=== PATIENT | female | born 2000 | race Caucasian/White ===

== ENCOUNTER 2025-06-21 16:40 | Emergency (ER) | payer OTHER ==
[~2025-06-21] VITALS: Ht 160 cm; Wt 95.0 kg
[~2025-06-21 16:40] MED LIST: ACET-2708 PO
[2025-06-21 16:46] VITALS: O2SAT 100
[2025-06-21 16:49] VITALS: BP 124/74; PULSE 86; RESP 15; TEMP 36.9; O2SAT 98
[2025-06-21 21:01] LABS: CLARITY URINE CLOUDY (CLEAR); COLOR URINE YELLOW (YELLOW); GLUCOSE URINE NEGATIVE (NEGATIVE); KETONES URINE NEGATIVE (NEGATIVE); LEUKOCYTE ESTERASE URINE 3+ (NEGATIVE); NITRITE URINE NEGATIVE (NEGATIVE); OCCULT BLOOD URINE 1+ (NEGATIVE); PH URINE 5.5 (4.5-8.0); PROTEIN URINE NEGATIVE (NEGATIVE); SPECIFIC GRAVITY URINE 1.005 (1.005-1.030); UROBILINOGEN URINE 0.2 E.U./dL (0.2-1.0)
[2025-06-21 21:14] LABS: SQUAMOUS EPITHELIAL CELL URINE 2+ /lpf (RARE/1+)
[2025-06-21 21:15] LABS: BACTERIA URINE 2+; WBC URINE 25-50 /hpf (0-2)
[2025-06-21] MEDS ORDERED: PYR200 MT (22:19)
[2025-06-21] MEDS ORDERED: ONDA-239 PO (22:19)
[2025-06-21] MEDS ORDERED: CEPH500C2 MT (22:19)
[2025-06-21] MEDS ORDERED: LIDOCAINE HCL 1% 20ML VIAL INFIL ONE (22:30)
[2025-06-21] MEDS ORDERED: DOXY100C5 MT (22:31)
[2025-06-21] MEDS: PHENAZOPYRIDINE HCL 100MG TABLET PO ONE (22:31)
[2025-06-21] MEDS: CEPHALEXIN 250MG CAPSULE PO ONE (22:31)
[2025-06-21] MEDS: CEFTRIAXONE SODIUM 500MG VIAL IM ONE (22:38)
[2025-06-24 04:12] LABS: CHLAMYDIA TRACHOMATIS NAA Negative (Negative); NEISSERIA GONORRHOEAE NAA Negative (Negative)
== END 2025-06-21 22:46 | disposition home or self-care (01) ==
LOC: ER 16:40
DX: N30.00 Acute cystitis without hematuria (principal); Z11.3 Encounter for screening for infections with a predominantly sexual mode of transmission; Z86.19 Personal history of other infectious and parasitic diseases; Z90.49 Acquired absence of other specified parts of digestive tract
CPT/HCPCS: 99283; 87491; 87591; 87086; 81003; 96372; J0696; J2003